=== PATIENT | male | born 1955 | race Caucasian/White ===

== ENCOUNTER 2020-10-22 18:12 | Emergency (ER) | payer MEDICAID ==
[~2020-10-22] VITALS: Ht 180.3 cm; Wt 120.8 kg
--- NOTE | 2020-10-22 18:33 | NUR ---
CC OF LEFT FLANK PAIN RADIATING TO GROIN. PT STATES STATES STARTED A DULL PAIN 3 DAYS AGO AND HAS GOTTEN WORSE. DENIES BLOOD IN URINE.
[2020-10-22 19:11] LABS: MICROSCOPIC INDICATED
[2020-10-22] MEDS ORDERED: KETOROLAC 30 MG/1 ML ONE (19:59)
[2020-10-22] MEDS ORDERED: KETOROLAC 30 MG/1 ML IM ONE (20:00)
[2020-10-22 20:28] LABS: ALANINE AMINOTRANSFERASE 51 U/L (12-78); ALBUMIN 3.2 g/dL (3.4-5.0); ANION GAP 7 mmol/L (5-15); CALCIUM 9.4 mg/dL (8.5-10.1); CHLORIDE 108 mmol/L (98-107); CREATININE 0.96 mg/dL (0.7-1.3)
[2020-10-22 20:31] LABS: ALKALINE PHOSPHATASE 75 U/L (45-117); BILIRUBIN,TOTAL 0.4 mg/dL (0.2-1.0)
[2020-10-22 20:36] LABS: BASOPHILS % (AUTO) 1 % (0-1); EOSINOPHILS % (AUTO) 2 % (1-7); LYMPHOCYTES % (AUTO) 40 % (22-44); MEAN CORPUSCULAR HEMOGLOBIN 32.6 pg (27.5-34.5); MEAN CORPUSCULAR HGB CONC 35.1 g/dL (33.2-36.2); MEAN PLATELET VOLUME 9.8 fL (7.4-10.4); MONOCYTES % (AUTO) 7 % (2-9); NEUTROPHILS % (AUTO) 51 % (42-75); PLATELET COUNT 214 x10^3/uL (130-400); RED BLOOD COUNT 5.02 x10^6/uL (4.38-5.82); RED CELL DISTRIBUTION WIDTH 13.7 % (9.4-14.8)
[2020-10-22 20:37] LABS: MD NO
[2020-10-22 21:38] VITALS: BP 136/96
== END 2020-10-22 21:40 | disposition home or self-care (01) ==
LOC: ED 21:19
DX: M54.5 Low back pain (principal); R10.9 Unspecified abdominal pain; I10 Essential (primary) hypertension; E11.9 Type 2 diabetes mellitus without complications; J44.9 Chronic obstructive pulmonary disease, unspecified
CPT/HCPCS: 36415; 74176; 80053; 81001; 85025; 87086; 96372; 99284; J1885

== ENCOUNTER 2021-01-11 15:44 | Observation (INO) | payer MEDICAID ==
[~2021-01-11] VITALS: Ht 180.3 cm; Wt 123.7 kg
--- NOTE | 2021-01-11 15:57 | NUR ---
1ST CALL NOT IN LOBBY
--- NOTE | 2021-01-11 16:18 | NUR ---
DOMO FROM HOME FOR C/O LEFT KNEE PAIN POST OP TOTAL KNEE REPLACEMENT 6 DAYS AGO, PT REPORTS HE DEVELOPED A BLISTER 2 DAYS AGO ON KNEE AND INCREASED IN SIZE. LARGE FLUID FILLED BLISTER NOTED ON LEFT KNEE, DRAINING FLUID. PT PLACED ON VITALS MONITORS, FALL PRECAUTIONS IN PLACE. CALL LIGHT PLACED WITHIN REACH.
[2021-01-11] MEDS ORDERED: ONDANSETRON ODT 4 MG PO ONE (16:30)
[2021-01-11] MEDS ORDERED: HYDROmorphone 1 MG/ML, 1ML INJ IM ONE (16:30)
[2021-01-11 17:13] LABS: BASOPHILS % (AUTO) 0 % (0-1); EOSINOPHILS % (AUTO) 1 % (1-7); LYMPHOCYTES % (AUTO) 29 % (22-44); MEAN CORPUSCULAR HEMOGLOBIN 32.6 pg (27.5-34.5); MEAN CORPUSCULAR HGB CONC 34.8 g/dL (33.2-36.2); MEAN PLATELET VOLUME 8.7 fL (7.4-10.4); MONOCYTES % (AUTO) 9 % (2-9); NEUTROPHILS % (AUTO) 61 % (42-75); PLATELET COUNT 270 x10^3/uL (130-400); RED BLOOD COUNT 3.58 x10^6/uL (4.38-5.82); RED CELL DISTRIBUTION WIDTH 14.1 % (9.4-14.8)
[2021-01-11 17:14] LABS: HCT (SEDRATE) 33.6 % (39.2-51.8)
[2021-01-11 17:18] LABS: ALANINE AMINOTRANSFERASE 30 U/L (12-78); ALBUMIN 2.4 g/dL (3.4-5.0); ANION GAP 9 mmol/L (5-15); CALCIUM 8.3 mg/dL (8.5-10.1); CHLORIDE 107 mmol/L (98-107); CREATININE 0.96 mg/dL (0.7-1.3)
[2021-01-11 17:24] LABS: ALKALINE PHOSPHATASE 65 U/L (45-117); BILIRUBIN,TOTAL 0.6 mg/dL (0.2-1.0); TOTAL PROTEIN 6.3 g/dL (6.4-8.2)
[2021-01-11] MEDS ORDERED: ONDANSETRON ODT 4 MG ONE (17:32)
[2021-01-11] MEDS ORDERED: HYDROmorphone 2 MG/ML, 1ML ONE ×2 (17:32→19:36)
--- NOTE | 2021-01-11 17:43 | NUR ---
PT MEDICATED PER MAR.
--- NOTE | 2021-01-11 18:58 | NUR ---
BEDSIDE REPORT TO NATALIE UMANZOR AND ESTEPHANIA UMANZOR.
--- NOTE | 2021-01-11 19:01 | NUR ---
REPORT RECEIVED FROM MONO. PATIENT RESTING ON GURNEY, DENIES PAIN, NAD AT THIS TIME. WILL CONTINUE TO MONITOR.
--- NOTE | 2021-01-11 19:59 | NUR ---
ATTEMPTED TO "ROAD TEST" PATIENT. PATIENT EXPERIENCED INCREASED PAIN FROM 5/10 TO 10/10 WITH AMBULATION, AND WAS ABLE TO AMBULATE TO THE END OF THE GURNEY BEFORE HE EXPERIENCED DIZZYNESS AND LIGHTHEADEDNESS. NOTIFIED
[2021-01-11] MEDS ORDERED: HYDROmorphone 1 MG/ML, 1ML INJ IV ONE (20:00)
--- NOTE | 2021-01-11 20:53 | NUR ---
PATIENT RESTING ON GURPIA TALKING TO [facility]
--- NOTE | 2021-01-11 20:57 | NUR ---
ATTEMPT X1 TO CALL REPORT TO CRISSY
[2021-01-11] MEDS ORDERED: POLYETHYLENE GLYCOL 17 GM PACKET PO PRN (21:00)
[2021-01-11] MEDS ORDERED: ONDANSETRON 2MG/ML, 2ML IVPush PRN (21:00)
[2021-01-11] MEDS ORDERED: KETOROLAC 30 MG/1 ML IV PRN (21:00)
[2021-01-11] MEDS ORDERED: MELATONIN 5 MG TABLET PO PRN (21:00)
[2021-01-11] MEDS ORDERED: LABETALOL 5MG/ML, 20ML IVPush PRN (21:00)
[2021-01-11] MEDS ORDERED: OXYcodone IR 5MG TABLET PO PRN (21:00)
--- NOTE | 2021-01-11 21:09 | NUR ---
Pt to be admitted to MEDICAL, room 333. Report called to CRISSY.
[2021-01-11] MEDS: ACETAMINOPHEN 500 MG TABLET PO SCH (22:44)
[2021-01-11] MEDS: INSULIN LISPRO 100 UNITS/ML, PEN SQ-INSULIN SCH (22:56)
[2021-01-12 01:07] VITALS: BP 131/68
[2021-01-12] MEDS: HYDROmorphone 2 MG/ML, 1ML IVPush PRN ×4 (02:20→21:56)
[2021-01-12] MEDS: ACETAMINOPHEN 500 MG TABLET PO SCH ×5 (02:59→19:03)
[2021-01-12 05:29] LABS: BASOPHILS % (AUTO) 1 % (0-1); EOSINOPHILS % (AUTO) 3 % (1-7); LYMPHOCYTES % (AUTO) 39 % (22-44); MEAN CORPUSCULAR HEMOGLOBIN 32.8 pg (27.5-34.5); MEAN CORPUSCULAR HGB CONC 34.6 g/dL (33.2-36.2); MEAN PLATELET VOLUME 8.9 fL (7.4-10.4); MONOCYTES % (AUTO) 9 % (2-9); NEUTROPHILS % (AUTO) 49 % (42-75); PLATELET COUNT 270 x10^3/uL (130-400); RED BLOOD COUNT 3.62 x10^6/uL (4.38-5.82); RED CELL DISTRIBUTION WIDTH 14.2 % (9.4-14.8)
[2021-01-12 05:45] LABS: ANION GAP 8 mmol/L (5-15); CALCIUM 9.1 mg/dL (8.5-10.1); CHLORIDE 106 mmol/L (98-107)
[2021-01-12 05:47] LABS: CREATININE 0.79 mg/dL (0.7-1.3)
[2021-01-12] MEDS ORDERED: ASPI81TA45 PO (05:48)
[2021-01-12] MEDS ORDERED: ERGO500017 PO (05:48)
[2021-01-12] MEDS ORDERED: OMEP-110 PO (05:48)
[2021-01-12] MEDS ORDERED: METF500T17 PO (05:48)
[2021-01-12] MEDS ORDERED: MECL-101 PO (05:48)
[2021-01-12] MEDS ORDERED: GLIP5POW PO (05:48)
[2021-01-12] MEDS ORDERED: ALBU90AE2 INH (05:48)
[2021-01-12] MEDS ORDERED: LOSA100T14 PO (05:48)
[2021-01-12] MEDS ORDERED: METH-640 PO (05:48)
[2021-01-12] MEDS ORDERED: FLUT1DIS IH (05:48)
[2021-01-12] MEDS ORDERED: OXYC5TAB2 PO (05:48)
[2021-01-12 06:52] VITALS: BP 144/87
[2021-01-12] MEDS: INSULIN LISPRO 100 UNITS/ML, PEN SQ-INSULIN SCH ×4 (07:00→20:16)
[2021-01-12 11:56] VITALS: BP 131/76
[2021-01-12 14:18] VITALS: BP 144/82
[2021-01-12] MEDS ORDERED: ENOXAPARIN 40 MG/0.4 ML SQ SCH (18:30)
[2021-01-12 19:28] VITALS: BP 143/94
[2021-01-12 19:37] VITALS: BP 139/72
[2021-01-13] MEDS: ACETAMINOPHEN 500 MG TABLET PO SCH ×2 (01:33→05:00)
[2021-01-13 02:38] VITALS: BP 137/77
[2021-01-13] MEDS: HYDROmorphone 2 MG/ML, 1ML IVPush PRN (05:08)
[2021-01-13 06:43] VITALS: BP 131/87
[2021-01-13] MEDS: INSULIN LISPRO 100 UNITS/ML, PEN SQ-INSULIN SCH (08:00)
== END 2021-01-13 09:32 | disposition home or self-care (01) ==
LOC: ED 18:00 → EDIP 20:57 → INTOOBSV 20:57 → 3N 21:59
PROVIDERS: ADMIT Internal Medicine; ATTEND Family Medicine
DX: G89.18 Other acute postprocedural pain (principal); M25.562 Pain in left knee; R23.8 Other skin changes; E11.65 Type 2 diabetes mellitus with hyperglycemia; J44.9 Chronic obstructive pulmonary disease, unspecified; K21.9 Gastro-esophageal reflux disease without esophagitis; I10 Essential (primary) hypertension; E66.01 Morbid (severe) obesity due to excess calories; Z68.36 Body mass index [BMI] 36.0-36.9, adult; Z79.82 Long term (current) use of aspirin; Z79.899 Other long term (current) drug therapy; Z87.891 Personal history of nicotine dependence; Z96.652 Presence of left artificial knee joint
CPT/HCPCS: 36415; 73560; 80048; 80053; 82962; 83605; 83735; 85025; 85651; 86140; 87040; 96372; 96374; 96375; 96376; 99284; G0378; J1170; J1650; J1815; J1885; Q0162